=== PATIENT | male | born 1950 | race Caucasian/White ===

== ENCOUNTER 2016-09-15 09:15 | Inpatient (IN) | payer OTHER ==
[~2016-09-15] VITALS: Ht 180.3 cm; Wt 85.0 kg
[~2016-09-15 09:15] MED LIST: LEVO88TA4 PO; LISI-646 PO
[2016-09-15 09:42] LABS: Urine Bilirubin Negative (Negative); Urine Blood 1+ /uL (Negative); Urine Color Orange (Yellow); Urine Glucose Normal (Normal); Urine Ketone Negative (Negative); Urine Mucus FEW (None Seen); Urine Nitrite Negative (Negative); Urine RBC 12 /hpf (0 - 3); Urine Squamous Epithelial Cell FEW /hpf (<5); Urine Urobilinogen Normal (Negative); Urine pH 5.5 (5.0-8.0)
[2016-09-15 10:06] LABS: Hemoglobin 13.9 g/dL (13.5-17.5); Mean Corpuscular Hemoglobin 29.4 pg (28.0-32.0); Mean Platelet Volume 8.6 fL (7.4-10.4); Platelet Count (auto) 303 10^3/uL (140-450); SUSPECT VIEW TRANSMISSION
[2016-09-15 10:13] LABS: Metamyelocytes % 0; Myelocytes % 0; Promyelocytes % 0; Reactive Lymphocytes 0
[2016-09-15 10:16] LABS: Albumin 2.9 g/dL (3.4-5.0); BUN/Creatinine Ratio 7.6; Bilirubin, Total 0.6 mg/dL (0.2-1.0); Calcium 8.8 mg/dL (8.5-10.1); Potassium 3.8 mmol/L (3.5-5.1); Total Protein 7.7 g/dL (6.4-8.2)
[2016-09-15 10:18] LABS: Lactic Acid 2.1 mmol/L (0.4-2.0)
[2016-09-15] MEDS ORDERED: IOHEXOL 300 MG/ML 100ML BOTTLE IJ ONE (10:20)
[2016-09-15 10:23] LABS: REFLEX LACTIC ACID YES OR NO YES
[2016-09-15] MEDS ORDERED: GASTROGRAFIN 30 ML SOL ONE (11:00)
[2016-09-15 12:04] LABS: Platelet Estimate Adequate; RBC Morphology Normal
[2016-09-15 12:09] LABS: White Blood Cell 12.3 10^3/uL (4.4-10.8)
[2016-09-15] MEDS ORDERED: VANCOMYCIN PER PHARMACY 0 MG IV SCH (12:30)
[2016-09-15] MEDS ORDERED: cefTRIAXone 1GM/50ML D5W 50 ML IV ONE (12:30)
[2016-09-15] MEDS ORDERED: ONDANSETRON HCL 4 MG/2 ML VIAL IV PRN (12:30)
[2016-09-15] MEDS: D5W/LACTATED RINGERS 1,000 ML IV SCH ×2 (12:30→22:30)
[2016-09-15] MEDS ORDERED: ENALAPRILAT 1.25 MG/ML-1ML VIAL IV PRN (12:30)
[2016-09-15] MEDS ORDERED: ACETAMINOPHEN 325 MG RECT SUPP PR PRN (12:45)
[2016-09-15] MEDS: VANCOMYCIN 1,250 MG in D5W 5% 250 ML IV SCH (14:00)
[2016-09-15 16:58] VITALS: BP 129/75
[2016-09-15 17:05] VITALS: BP 129/75
[2016-09-15] MEDS: metroNIDAZOLE 500MG/100ML 100 ML IV SCH ×2 (17:32→22:07)
[2016-09-15] MEDS: MORPHINE SULF INJ 2 MG/ML SYRINGE 1ML IV PRN ×2 (17:32→22:08)
[2016-09-15 22:01] VITALS: BP 134/72
[2016-09-16] MEDS: VANCOMYCIN 1,250 MG in D5W 5% 250 ML IV SCH ×2 (02:04→14:26)
[2016-09-16] MEDS: MORPHINE SULF INJ 2 MG/ML SYRINGE 1ML IV PRN ×3 (02:15→21:47)
[2016-09-16 05:00] VITALS: BP 113/68
[2016-09-16 05:26] LABS: Basophils # (auto) 0 uL; Basophils % (auto) 0.4 % (0.0-2.0); Eosinophils # (auto) 0.1 uL; Eosinophils % (auto) 0.6 % (0.0-7.0); Hematocrit 36.7 % (41.0-53.0); Hemoglobin 11.9 g/dL (13.5-17.5); Lymphocytes # (auto) 1.6 uL; Mean Corpuscular Hemoglobin 28.9 pg (28.0-32.0); Mean Corpuscular Hgb Conc. 32.4 g/dL (32.0-36.0); Mean Corpuscular Volume 89.1 fL (80.0-100.0); Mean Platelet Volume 8.3 fL (7.4-10.4); Monocytes # (auto) 1.1 uL; Monocytes % (auto) 11.6 % (0.0-12.0); Neutrophils % (auto) 71.4 % (37.0-80.0); Platelet Count (auto) 370 10^3/uL (140-450); Red Cell Distribution Width 13.9 % (11.6-16.0); White Blood Cell 9.8 10^3/uL (4.4-10.8)
[2016-09-16 05:39] LABS: Partial Thromboplastin Time 32.4 sec (22.64-33.71)
[2016-09-16 05:45] LABS: Albumin 2.3 g/dL (3.4-5.0); BUN/Creatinine Ratio 8.2; Calcium 8.1 mg/dL (8.5-10.1); INR 1.17 (0.9-1.15); Potassium 3.5 mmol/L (3.5-5.1)
[2016-09-16] MEDS: metroNIDAZOLE 500MG/100ML 100 ML IV SCH ×3 (05:52→21:34)
[2016-09-16 05:55] LABS: Bilirubin, Total 0.4 mg/dL (0.2-1.0); Total Protein 6.6 g/dL (6.4-8.2)
[2016-09-16] MEDS: D5W/LACTATED RINGERS 1,000 ML IV SCH ×3 (08:30→21:41)
[2016-09-16] MEDS: cefTRIAXone 1GM/50ML D5W 50 ML IV SCH (08:41)
[2016-09-16 09:19] VITALS: BP 133/69
[2016-09-16 11:51] VITALS: BP 129/71
[2016-09-16] MEDS ORDERED: TPN PER PHARMACY 0 ML IV SCH (12:15)
[2016-09-16 12:53] LABS: Magnesium 2.4 mg/dL (1.6-2.6); Phosphorus 3.4 mg/dL (2.6-4.90)
[2016-09-16 17:03] VITALS: BP 139/81
[2016-09-16] MEDS ORDERED: CLINIMIX PER PHARMACY IV NR ×7 (20:00)
[2016-09-16 22:00] VITALS: BP 139/70
[2016-09-16] MEDS: InsuLIN REG 1unit/0.01ml Soln (100units/ml) SC SCH (23:58)
[2016-09-16] MEDS: ACCU-CHEK COMFORT CURVE STRIP VI SCH (23:58)
[2016-09-17] MEDS ORDERED: DEXTROSE (50%) 50ML SYRG IV SCH
[2016-09-17] MEDS: VANCOMYCIN 1,250 MG in D5W 5% 250 ML IV SCH ×2 (02:08→14:47)
[2016-09-17] MEDS: metroNIDAZOLE 500MG/100ML 100 ML IV SCH ×2 (04:32→12:00)
[2016-09-17 05:30] VITALS: BP 139/89
[2016-09-17 05:34] LABS: Calcium 8.1 mg/dL (8.5-10.1); Potassium 3.6 mmol/L (3.5-5.1)
[2016-09-17 05:37] LABS: Albumin 2.2 g/dL (3.4-5.0); BUN/Creatinine Ratio 9.8
[2016-09-17 05:44] LABS: Magnesium 2.3 mg/dL (1.6-2.6); Phosphorus 3.8 mg/dL (2.6-4.90)
[2016-09-17 05:49] LABS: Bilirubin, Total 0.2 mg/dL (0.2-1.0)
[2016-09-17] MEDS: ACCU-CHEK COMFORT CURVE STRIP VI SCH ×4 (06:00→23:59)
[2016-09-17] MEDS: InsuLIN REG 1unit/0.01ml Soln (100units/ml) SC SCH ×4 (06:00→23:59)
[2016-09-17 09:08] VITALS: BP 143/77
[2016-09-17] MEDS: cefTRIAXone 1GM/50ML D5W 50 ML IV SCH (09:32)
[2016-09-17] MEDS: D5W/LACTATED RINGERS 1,000 ML IV SCH ×2 (09:32→20:11)
[2016-09-17] MEDS ORDERED: D5W/LACTATED RINGERS 1,000 ML IV SCH (10:15)
[2016-09-17 13:00] VITALS: BP 142/77
[2016-09-17] MEDS ORDERED: LIDOCAINE 1% HCL (LOCAL ANESTH.) INJ 20ML MDV ID ONE (13:45)
[2016-09-17 17:00] VITALS: BP 132/73
[2016-09-17] MEDS: MEROPENEM 1GM IVPB 100 ML IV SCH (19:15)
[2016-09-17] MEDS ORDERED: PPN PER PHARMACY IV NR ×12 (20:00)
[2016-09-17 22:00] VITALS: BP 139/77
[2016-09-17] MEDS: SODIUM CHLOR 0.9% PF (SALINE LOCK) 10ML VIAL IV SCH (22:17)
[2016-09-17] MEDS: MORPHINE SULF INJ 2 MG/ML SYRINGE 1ML IV PRN (23:36)
[2016-09-18] MEDS: MEROPENEM 1GM IVPB 100 ML IV SCH ×3 (01:36→17:21)
[2016-09-18] MEDS: VANCOMYCIN 1,250 MG in D5W 5% 250 ML IV SCH ×2 (01:36→14:07)
[2016-09-18] MEDS: MORPHINE SULF INJ 2 MG/ML SYRINGE 1ML IV PRN ×2 (04:05→20:44)
[2016-09-18 05:00] VITALS: BP 130/77
[2016-09-18] MEDS: InsuLIN REG 1unit/0.01ml Soln (100units/ml) SC SCH ×4 (06:00→23:53)
[2016-09-18] MEDS: ACCU-CHEK COMFORT CURVE STRIP VI SCH ×4 (06:32→23:51)
[2016-09-18 07:26] LABS: Albumin 2.1 g/dL (3.4-5.0); BUN/Creatinine Ratio 9.3; Bilirubin, Total 0.3 mg/dL (0.2-1.0); Calcium 7.6 mg/dL (8.5-10.1); Magnesium 2.1 mg/dL (1.6-2.6); Phosphorus 2.4 mg/dL (2.6-4.90); Potassium 3.9 mmol/L (3.5-5.1); Total Protein 5.6 g/dL (6.4-8.2)
[2016-09-18] MEDS ORDERED: GASTROGRAFIN 30 ML SOL ONE (08:39)
[2016-09-18 09:19] VITALS: BP 138/72
[2016-09-18] MEDS: SODIUM CHLOR 0.9% PF (SALINE LOCK) 10ML VIAL IV SCH ×2 (11:51→21:44)
[2016-09-18] MEDS ORDERED: MIDAZOLAM HCL 1MG/1ML-2 ML VIAL ONE (13:09)
[2016-09-18] MEDS ORDERED: fentaNYL CITRATE 100 MCG/2 ML VL ONE (13:09)
[2016-09-18] MEDS ORDERED: PANTOPRAZOLE SODIUM 40 MG/10 ML VIAL IV ONE (13:30)
[2016-09-18 14:52] VITALS: BP 138/69
[2016-09-18 17:19] VITALS: BP 137/73
[2016-09-18] MEDS: D5W/LACTATED RINGERS 1,000 ML IV SCH (17:21)
[2016-09-18] MEDS ORDERED: ALUM & MAG HYDROX-SIMETH LIQ(MAALOX) 30 ML PO PRN (17:45)
[2016-09-18] MEDS ORDERED: TPN PER PHARMACY IV NR ×11 (20:00)
[2016-09-18 21:44] VITALS: BP 134/75
[2016-09-19] MEDS: VANCOMYCIN 1,250 MG in D5W 5% 250 ML IV SCH ×2 (01:40→14:02)
[2016-09-19] MEDS: MEROPENEM 1GM IVPB 100 ML IV SCH ×2 (01:40→08:35)
[2016-09-19 05:06] VITALS: BP 141/71
[2016-09-19] MEDS: InsuLIN REG 1unit/0.01ml Soln (100units/ml) SC SCH ×3 (06:00→18:00)
[2016-09-19] MEDS: ACCU-CHEK COMFORT CURVE STRIP VI SCH ×3 (06:28→18:05)
[2016-09-19 06:55] LABS: Basophils # (auto) 0 uL; Basophils % (auto) 0.3 % (0.0-2.0); Eosinophils # (auto) 0.2 uL; Eosinophils % (auto) 1.2 % (0.0-7.0); Hematocrit 32.5 % (41.0-53.0); Hemoglobin 10.7 g/dL (13.5-17.5); Lymphocytes # (auto) 1.2 uL; Lymphocytes % (auto) 8.8 % (10.0-50.0); Mean Corpuscular Hemoglobin 29.1 pg (28.0-32.0); Mean Corpuscular Volume 88.1 fL (80.0-100.0); Mean Platelet Volume 7.9 fL (7.4-10.4); Monocytes % (auto) 7.5 % (0.0-12.0); Neutrophils # (auto) 10.9 uL; Neutrophils % (auto) 82.2 % (37.0-80.0); Platelet Count (auto) 312 10^3/uL (140-450); Red Cell Distribution Width 13.7 % (11.6-16.0); White Blood Cell 13.3 10^3/uL (4.4-10.8)
[2016-09-19 07:14] LABS: Albumin 2.1 g/dL (3.4-5.0); BUN/Creatinine Ratio 9.2; Bilirubin, Total 0.3 mg/dL (0.2-1.0); Calcium 6.9 mg/dL (8.5-10.1); Phosphorus 2.8 mg/dL (2.6-4.90); Potassium 3.7 mmol/L (3.5-5.1); Total Protein 5.5 g/dL (6.4-8.2)
[2016-09-19 09:00] VITALS: BP 134/72
[2016-09-19] MEDS: SODIUM CHLOR 0.9% PF (SALINE LOCK) 10ML VIAL IV SCH ×2 (09:46→22:01)
[2016-09-19] MEDS: PANTOPRAZOLE SODIUM 40 MG/10 ML VIAL IV SCH (09:46)
[2016-09-19] MEDS ORDERED: IOTHALAMATE MEGLUMINE INJ 250ML BOT UR ONE (12:07)
[2016-09-19] MEDS: D5W/LACTATED RINGERS 1,000 ML IV SCH (14:02)
[2016-09-19 17:00] VITALS: BP 133/79
[2016-09-19] MEDS: LEVOFLOXACIN 500MG 100 ML IV SCH (17:53)
[2016-09-19] MEDS ORDERED: TPN PER PHARMACY IV NR ×11 (20:00)
[2016-09-19] MEDS ORDERED: D5W/LACTATED RINGERS 1,000 ML IV SCH (20:00)
[2016-09-19 21:43] VITALS: BP 125/74
[2016-09-19] MEDS: TEMAZEPAM 15 MG CAP PO PRN (22:04)
[2016-09-20] MEDS: ACCU-CHEK COMFORT CURVE STRIP VI SCH ×4 (00:05→18:00)
[2016-09-20] MEDS: InsuLIN REG 1unit/0.01ml Soln (100units/ml) SC SCH ×4 (00:07→18:00)
[2016-09-20] MEDS: VANCOMYCIN 1,250 MG in D5W 5% 250 ML IV SCH ×2 (01:53→19:29)
[2016-09-20 04:47] VITALS: BP 136/78
[2016-09-20 08:33] LABS: Albumin 2.4 g/dL (3.4-5.0); BUN/Creatinine Ratio 10.7; Bilirubin, Total 0.3 mg/dL (0.2-1.0); Calcium 8.4 mg/dL (8.5-10.1); Magnesium 2.6 mg/dL (1.6-2.6); Phosphorus 3.6 mg/dL (2.6-4.90); Potassium 4.5 mmol/L (3.5-5.1); Total Protein 6.7 g/dL (6.4-8.2)
[2016-09-20 09:00] VITALS: BP 122/74
[2016-09-20] MEDS: SODIUM CHLOR 0.9% PF (SALINE LOCK) 10ML VIAL IV SCH ×2 (10:00→21:27)
[2016-09-20] MEDS: PANTOPRAZOLE SODIUM 40 MG/10 ML VIAL IV SCH (10:36)
[2016-09-20] MEDS: LEVOFLOXACIN 500MG 100 ML IV SCH (10:37)
[2016-09-20 11:11] LABS: Basophils # (auto) 0.1 uL; Basophils % (auto) 0.7 % (0.0-2.0); Eosinophils # (auto) 0.3 uL; Eosinophils % (auto) 2.5 % (0.0-7.0); Hemoglobin 11.9 g/dL (13.5-17.5); Lymphocytes # (auto) 1.7 uL; Lymphocytes % (auto) 12.9 % (10.0-50.0); Mean Corpuscular Hemoglobin 29.3 pg (28.0-32.0); Mean Corpuscular Hgb Conc. 33.2 g/dL (32.0-36.0); Mean Corpuscular Volume 88.2 fL (80.0-100.0); Mean Platelet Volume 7.6 fL (7.4-10.4); Monocytes % (auto) 7.4 % (0.0-12.0); Neutrophils # (auto) 9.8 uL; Neutrophils % (auto) 76.5 % (37.0-80.0); Platelet Count (auto) 373 10^3/uL (140-450); Red Cell Distribution Width 13.9 % (11.6-16.0); White Blood Cell 12.9 10^3/uL (4.4-10.8)
[2016-09-20 13:00] VITALS: BP 116/71
[2016-09-20 17:00] VITALS: BP 126/76
[2016-09-20] MEDS ORDERED: TPN PER PHARMACY IV NR ×10 (20:00)
[2016-09-20 21:04] VITALS: BP 127/78
[2016-09-20] MEDS: TEMAZEPAM 15 MG CAP PO PRN (21:23)
[2016-09-20] MEDS: metroNIDAZOLE 500MG/100ML 100 ML IV SCH (21:26)
[2016-09-21] MEDS: ACCU-CHEK COMFORT CURVE STRIP VI SCH ×4 (00:19→22:14)
[2016-09-21] MEDS: VANCOMYCIN 1,250 MG in D5W 5% 250 ML IV SCH ×2 (02:07→14:00)
[2016-09-21 05:24] VITALS: BP 118/70
[2016-09-21] MEDS: metroNIDAZOLE 500MG/100ML 100 ML IV SCH ×3 (05:26→22:14)
[2016-09-21] MEDS: InsuLIN REG 1unit/0.01ml Soln (100units/ml) SC SCH ×5 (05:38→22:00)
[2016-09-21 07:34] LABS: Basophils # (auto) 0 uL; Basophils % (auto) 0.4 % (0.0-2.0); Eosinophils # (auto) 0.3 uL; Eosinophils % (auto) 2.8 % (0.0-7.0); Hematocrit 36.9 % (41.0-53.0); Hemoglobin 11.9 g/dL (13.5-17.5); Lymphocytes # (auto) 1.6 uL; Lymphocytes % (auto) 14.5 % (10.0-50.0); Mean Corpuscular Hemoglobin 28.8 pg (28.0-32.0); Mean Corpuscular Hgb Conc. 32.1 g/dL (32.0-36.0); Mean Corpuscular Volume 89.6 fL (80.0-100.0); Monocytes # (auto) 0.8 uL; Monocytes % (auto) 7.3 % (0.0-12.0); Neutrophils # (auto) 8.5 uL; Platelet Count (auto) 369 10^3/uL (140-450); White Blood Cell 11.3 10^3/uL (4.4-10.8)
[2016-09-21 07:49] LABS: Albumin 2.4 g/dL (3.4-5.0); BUN/Creatinine Ratio 13.9; Bilirubin, Total 0.3 mg/dL (0.2-1.0); Calcium 8.7 mg/dL (8.5-10.1); Magnesium 2.5 mg/dL (1.6-2.6); Phosphorus 3.6 mg/dL (2.6-4.90); Potassium 4.4 mmol/L (3.5-5.1); Total Protein 6.5 g/dL (6.4-8.2)
[2016-09-21 09:00] VITALS: BP 121/70
[2016-09-21] MEDS: SODIUM CHLOR 0.9% PF (SALINE LOCK) 10ML VIAL IV SCH ×2 (10:00→22:14)
[2016-09-21] MEDS: PANTOPRAZOLE SODIUM 40 MG/10 ML VIAL IV SCH (10:40)
[2016-09-21] MEDS: LEVOFLOXACIN 500MG 100 ML IV SCH (10:40)
[2016-09-21 13:00] VITALS: BP 145/84
[2016-09-21 17:00] VITALS: BP 135/80
[2016-09-21] MEDS ORDERED: TPN PER PHARMACY IV NR ×11 (20:00)
[2016-09-21 21:34] LABS: Urine Bilirubin Negative (Negative); Urine Blood Negative /uL (Negative); Urine Color Yellow (Yellow); Urine Glucose Normal (Normal); Urine Ketone Negative (Negative); Urine Mucus FEW (None Seen); Urine Nitrite Negative (Negative); Urine RBC 1 /hpf (0 - 3); Urine Urobilinogen Normal (Negative)
[2016-09-21 21:42] VITALS: BP 136/76
[2016-09-21] MEDS ORDERED: DEXTROSE (50%) 50ML SYRG IV SCH (22:00)
[2016-09-21] MEDS: TEMAZEPAM 15 MG CAP PO PRN (22:17)
[2016-09-22 01:44] LABS: Albumin 2.4 g/dL (3.4-5.0); BUN/Creatinine Ratio 14.1; Calcium 8.2 mg/dL (8.5-10.1); Potassium 4.1 mmol/L (3.5-5.1)
[2016-09-22 01:47] LABS: Bilirubin, Total 0.4 mg/dL (0.2-1.0); Total Protein 6.4 g/dL (6.4-8.2)
[2016-09-22] MEDS: VANCOMYCIN 1,250 MG in D5W 5% 250 ML IV SCH ×2 (02:02→14:54)
[2016-09-22 05:16] VITALS: BP 118/69
[2016-09-22] MEDS: metroNIDAZOLE 500MG/100ML 100 ML IV SCH ×3 (05:33→21:58)
[2016-09-22 06:32] LABS: Albumin 2.4 g/dL (3.4-5.0); BUN/Creatinine Ratio 14.6; Bilirubin, Total 0.4 mg/dL (0.2-1.0); Calcium 8.5 mg/dL (8.5-10.1); Magnesium 2.2 mg/dL (1.6-2.6); Phosphorus 2.9 mg/dL (2.6-4.90); Potassium 3.9 mmol/L (3.5-5.1); Total Protein 6.3 g/dL (6.4-8.2)
[2016-09-22 08:32] VITALS: BP 130/82
[2016-09-22] MEDS: PANTOPRAZOLE SODIUM 40 MG/10 ML VIAL IV SCH (09:44)
[2016-09-22] MEDS: LEVOFLOXACIN 500MG 100 ML IV SCH (09:44)
[2016-09-22] MEDS: SODIUM CHLOR 0.9% PF (SALINE LOCK) 10ML VIAL IV SCH ×2 (09:52→21:58)
[2016-09-22] MEDS: InsuLIN REG 1unit/0.01ml Soln (100units/ml) SC SCH ×2 (10:00→21:59)
[2016-09-22] MEDS: ACCU-CHEK COMFORT CURVE STRIP VI SCH ×2 (10:00→21:59)
[2016-09-22] MEDS ORDERED: CATHFLO ACTIVASE (ALTEPLASE) 2 MG VIAL IV ONE (11:15)
[2016-09-22 13:00] VITALS: BP 123/74
[2016-09-22 16:50] VITALS: BP 132/77
[2016-09-22] MEDS ORDERED: TPN PER PHARMACY IV NR ×11 (20:00)
[2016-09-22] MEDS: TEMAZEPAM 15 MG CAP PO PRN (21:58)
[2016-09-22 22:00] VITALS: BP 124/77
[2016-09-23] MEDS: VANCOMYCIN 1,250 MG in D5W 5% 250 ML IV SCH ×2 (01:55→14:52)
[2016-09-23 05:00] VITALS: BP 116/70
[2016-09-23] MEDS: metroNIDAZOLE 500MG/100ML 100 ML IV SCH ×3 (05:34→21:49)
[2016-09-23 06:42] LABS: Albumin 2.5 g/dL (3.4-5.0); BUN/Creatinine Ratio 14.9; Bilirubin, Total 0.3 mg/dL (0.2-1.0); Calcium 8.6 mg/dL (8.5-10.1); Magnesium 2.2 mg/dL (1.6-2.6); Phosphorus 3.3 mg/dL (2.6-4.90); Potassium 4.1 mmol/L (3.5-5.1); Total Protein 6.3 g/dL (6.4-8.2)
[2016-09-23 08:12] VITALS: BP 119/67
[2016-09-23] MEDS: PANTOPRAZOLE SODIUM 40 MG/10 ML VIAL IV SCH (09:59)
[2016-09-23] MEDS: LEVOFLOXACIN 500MG 100 ML IV SCH (09:59)
[2016-09-23] MEDS: SODIUM CHLOR 0.9% PF (SALINE LOCK) 10ML VIAL IV SCH ×2 (10:00→22:12)
[2016-09-23] MEDS: InsuLIN REG 1unit/0.01ml Soln (100units/ml) SC SCH ×2 (10:00→22:10)
[2016-09-23] MEDS: ACCU-CHEK COMFORT CURVE STRIP VI SCH ×2 (10:16→21:50)
[2016-09-23 13:08] VITALS: BP 125/72
[2016-09-23 16:23] VITALS: BP 126/73
[2016-09-23] MEDS ORDERED: TPN PER PHARMACY IV NR ×11 (20:00)
[2016-09-23] MEDS: TEMAZEPAM 15 MG CAP PO PRN (21:49)
[2016-09-23 22:00] VITALS: BP 121/68
[2016-09-24] MEDS: VANCOMYCIN 1,250 MG in D5W 5% 250 ML IV SCH ×2 (02:18→13:58)
[2016-09-24 05:48] VITALS: BP 120/67
[2016-09-24] MEDS: metroNIDAZOLE 500MG/100ML 100 ML IV SCH ×3 (06:44→21:28)
[2016-09-24 07:11] LABS: Basophils # (auto) 0 uL; Basophils % (auto) 0.4 % (0.0-2.0); Eosinophils # (auto) 0.3 uL; Eosinophils % (auto) 2.9 % (0.0-7.0); Hematocrit 39.3 % (41.0-53.0); Hemoglobin 12.7 g/dL (13.5-17.5); Lymphocytes # (auto) 2.3 uL; Lymphocytes % (auto) 20.8 % (10.0-50.0); Mean Corpuscular Hemoglobin 28.7 pg (28.0-32.0); Mean Corpuscular Hgb Conc. 32.3 g/dL (32.0-36.0); Mean Platelet Volume 8.6 fL (7.4-10.4); Monocytes # (auto) 0.7 uL; Monocytes % (auto) 6.1 % (0.0-12.0); Neutrophils # (auto) 7.6 uL; Neutrophils % (auto) 69.8 % (37.0-80.0); Platelet Count (auto) 406 10^3/uL (140-450); Red Cell Distribution Width 14.2 % (11.6-16.0); White Blood Cell 10.9 10^3/uL (4.4-10.8)
[2016-09-24 07:44] LABS: BUN/Creatinine Ratio 15.5; Bilirubin, Total 0.4 mg/dL (0.2-1.0); Calcium 9.1 mg/dL (8.5-10.1); Magnesium 2.3 mg/dL (1.6-2.6); Phosphorus 3.7 mg/dL (2.6-4.90); Total Protein 7.2 g/dL (6.4-8.2)
[2016-09-24 07:45] LABS: Potassium 4.4 mmol/L (3.5-5.1)
[2016-09-24 09:00] VITALS: BP 123/78
[2016-09-24] MEDS: InsuLIN REG 1unit/0.01ml Soln (100units/ml) SC SCH (10:00)
[2016-09-24] MEDS: SODIUM CHLOR 0.9% PF (SALINE LOCK) 10ML VIAL IV SCH ×2 (10:09→21:38)
[2016-09-24] MEDS: LEVOFLOXACIN 500MG 100 ML IV SCH (10:09)
[2016-09-24] MEDS: PANTOPRAZOLE SODIUM 40 MG/10 ML VIAL IV SCH (10:09)
[2016-09-24] MEDS ORDERED: GASTROGRAFIN 30 ML SOL ONE (12:18)
[2016-09-24] MEDS: ACCU-CHEK COMFORT CURVE STRIP VI SCH ×2 (12:29→22:00)
[2016-09-24 13:00] VITALS: BP 121/70
[2016-09-24] MEDS ORDERED: IOHEXOL 300 MG/ML 100ML BOTTLE IJ ONE (14:35)
[2016-09-24 17:00] VITALS: BP 106/68
[2016-09-24] MEDS ORDERED: TPN PER PHARMACY IV NR ×11 (20:00)
[2016-09-24] MEDS: TEMAZEPAM 15 MG CAP PO PRN (21:27)
[2016-09-24 22:00] VITALS: BP 121/65
[2016-09-25] MEDS: InsuLIN REG 1unit/0.01ml Soln (100units/ml) SC SCH ×3 (00:03→22:11)
[2016-09-25] MEDS: VANCOMYCIN 1,250 MG in D5W 5% 250 ML IV SCH ×2 (02:00→14:27)
[2016-09-25 05:25] VITALS: BP 121/66
[2016-09-25] MEDS: metroNIDAZOLE 500MG/100ML 100 ML IV SCH ×3 (06:00→20:57)
[2016-09-25 08:40] LABS: Basophils # (auto) 0.1 uL; Basophils % (auto) 0.3 % (0.0-2.0); Eosinophils # (auto) 0.2 uL; Eosinophils % (auto) 1.1 % (0.0-7.0); Hematocrit 40.7 % (41.0-53.0); Lymphocytes # (auto) 1.8 uL; Lymphocytes % (auto) 9.9 % (10.0-50.0); Mean Corpuscular Hemoglobin 28.3 pg (28.0-32.0); Mean Corpuscular Hgb Conc. 31.9 g/dL (32.0-36.0); Mean Corpuscular Volume 88.7 fL (80.0-100.0); Mean Platelet Volume 8.3 fL (7.4-10.4); Monocytes # (auto) 0.7 uL; Monocytes % (auto) 3.7 % (0.0-12.0); Neutrophils # (auto) 15.5 uL; Platelet Count (auto) 413 10^3/uL (140-450); Red Cell Distribution Width 15.1 % (11.6-16.0); White Blood Cell 18.3 10^3/uL (4.4-10.8)
[2016-09-25 08:59] LABS: Albumin 2.8 g/dL (3.4-5.0); BUN/Creatinine Ratio 14.2; Bilirubin, Total 0.5 mg/dL (0.2-1.0); Calcium 8.4 mg/dL (8.5-10.1); Magnesium 2.1 mg/dL (1.6-2.6); Potassium 4.2 mmol/L (3.5-5.1); Total Protein 7.2 g/dL (6.4-8.2)
[2016-09-25 09:00] VITALS: BP 114/65
[2016-09-25] MEDS: LEVOFLOXACIN 500MG 100 ML IV SCH (09:38)
[2016-09-25] MEDS: PANTOPRAZOLE SODIUM 40 MG/10 ML VIAL IV SCH (09:38)
[2016-09-25] MEDS: SODIUM CHLOR 0.9% PF (SALINE LOCK) 10ML VIAL IV SCH ×2 (09:39→21:09)
[2016-09-25] MEDS: ACCU-CHEK COMFORT CURVE STRIP VI SCH ×2 (09:39→21:09)
[2016-09-25] MEDS ORDERED: MORPHINE SULF INJ 2 MG/ML SYRINGE 1ML IV PRN (12:15)
[2016-09-25] MEDS ORDERED: FLUCONAZOLE 200MG/100ML 100 ML IV ONE (12:15)
[2016-09-25] MEDS ORDERED: VANCOMYCIN PER PHARMACY 0 MG IV SCH (12:15)
[2016-09-25 13:00] VITALS: BP 122/67
[2016-09-25] MEDS ORDERED: ACETAMINOPHEN 500 MG TAB PO PRN (13:30)
[2016-09-25 17:00] VITALS: BP 123/72
[2016-09-25] MEDS ORDERED: TPN PER PHARMACY IV NR ×12 (20:00)
[2016-09-25] MEDS: TEMAZEPAM 15 MG CAP PO PRN (21:49)
[2016-09-25 22:00] VITALS: BP 122/71
[2016-09-26] MEDS: VANCOMYCIN 1,250 MG in D5W 5% 250 ML IV SCH ×2 (01:27→14:20)
[2016-09-26] MEDS: metroNIDAZOLE 500MG/100ML 100 ML IV SCH ×3 (05:03→22:02)
[2016-09-26 05:31] VITALS: BP 113/71
[2016-09-26 06:29] LABS: Albumin 2.5 g/dL (3.4-5.0); BUN/Creatinine Ratio 14.1; Bilirubin, Total 0.4 mg/dL (0.2-1.0); Calcium 8.4 mg/dL (8.5-10.1); Magnesium 2.3 mg/dL (1.6-2.6); Phosphorus 3.1 mg/dL (2.6-4.90); Potassium 4.1 mmol/L (3.5-5.1); Total Protein 6.1 g/dL (6.4-8.2)
[2016-09-26 06:40] LABS: Hemoglobin 11.5 g/dL (13.5-17.5); Mean Corpuscular Hemoglobin 29.6 pg (28.0-32.0); Mean Corpuscular Hgb Conc. 32.9 g/dL (32.0-36.0); Mean Corpuscular Volume 90.1 fL (80.0-100.0); Mean Platelet Volume 8.7 fL (7.4-10.4); Platelet Count (auto) 288 10^3/uL (140-450); Red Cell Distribution Width 13.5 % (11.6-16.0); SUSPECT VIEW TRANSMISSION; White Blood Cell 10.3 10^3/uL (4.4-10.8)
[2016-09-26 07:21] LABS: Metamyelocytes % 0; Myelocytes % 0; Promyelocytes % 0; Reactive Lymphocytes 0
[2016-09-26 08:56] LABS: Platelet Estimate Adequate; RBC Morphology Normal
[2016-09-26 09:00] VITALS: BP 117/67
[2016-09-26] MEDS: ACCU-CHEK COMFORT CURVE STRIP VI SCH ×2 (10:00→22:18)
[2016-09-26] MEDS: PANTOPRAZOLE SODIUM 40 MG/10 ML VIAL IV SCH (11:11)
[2016-09-26] MEDS: SODIUM CHLOR 0.9% PF (SALINE LOCK) 10ML VIAL IV SCH ×2 (11:12→22:03)
[2016-09-26] MEDS: FLUCONAZOLE 200MG/100ML 100 ML IV SCH (11:12)
[2016-09-26] MEDS: InsuLIN REG 1unit/0.01ml Soln (100units/ml) SC SCH ×2 (11:42→22:17)
[2016-09-26 13:00] VITALS: BP 120/73
[2016-09-26 17:00] VITALS: BP 138/78
[2016-09-26] MEDS: LEVOFLOXACIN 500MG 100 ML IV SCH (17:13)
[2016-09-26] MEDS ORDERED: TPN PER PHARMACY IV NR ×12 (20:00)
[2016-09-26 22:00] VITALS: BP 128/72
[2016-09-26] MEDS: TEMAZEPAM 15 MG CAP PO PRN (22:13)
[2016-09-27] MEDS ORDERED: VANCOMYCIN 1GM/250ML D5W 250 ML IV ONE (01:43)
[2016-09-27] MEDS: VANCOMYCIN 1,250 MG in D5W 5% 250 ML IV SCH ×2 (02:01→14:39)
[2016-09-27] MEDS: metroNIDAZOLE 500MG/100ML 100 ML IV SCH ×3 (04:33→20:37)
[2016-09-27 05:22] VITALS: BP 107/62
[2016-09-27 06:16] LABS: Albumin 2.4 g/dL (3.4-5.0); BUN/Creatinine Ratio 14.8; Bilirubin, Total 0.3 mg/dL (0.2-1.0); Calcium 8.4 mg/dL (8.5-10.1); Magnesium 2.3 mg/dL (1.6-2.6); Potassium 3.9 mmol/L (3.5-5.1); Total Protein 6.1 g/dL (6.4-8.2)
[2016-09-27 08:34] VITALS: BP 120/74
[2016-09-27 08:54] LABS: Basophils # (auto) 0 uL; Basophils % (auto) 0.4 % (0.0-2.0); Eosinophils # (auto) 0.2 uL; Eosinophils % (auto) 2.7 % (0.0-7.0); Hematocrit 33.1 % (41.0-53.0); Hemoglobin 10.7 g/dL (13.5-17.5); Lymphocytes # (auto) 1.3 uL; Mean Corpuscular Hgb Conc. 32.4 g/dL (32.0-36.0); Mean Corpuscular Volume 89.4 fL (80.0-100.0); Mean Platelet Volume 9.1 fL (7.4-10.4); Monocytes # (auto) 0.7 uL; Monocytes % (auto) 9.1 % (0.0-12.0); Neutrophils # (auto) 5.4 uL; Neutrophils % (auto) 70.8 % (37.0-80.0); Platelet Count (auto) 304 10^3/uL (140-450); Red Cell Distribution Width 14.4 % (11.6-16.0); White Blood Cell 7.6 10^3/uL (4.4-10.8)
[2016-09-27] MEDS: FLUCONAZOLE 200MG/100ML 100 ML IV SCH (08:55)
[2016-09-27] MEDS: ACCU-CHEK COMFORT CURVE STRIP VI SCH ×2 (09:02→22:09)
[2016-09-27] MEDS: PANTOPRAZOLE SODIUM 40 MG/10 ML VIAL IV SCH (10:26)
[2016-09-27] MEDS: LEVOFLOXACIN 500MG 100 ML IV SCH (10:26)
[2016-09-27] MEDS: InsuLIN REG 1unit/0.01ml Soln (100units/ml) SC SCH ×2 (10:27→22:00)
[2016-09-27] MEDS: SODIUM CHLOR 0.9% PF (SALINE LOCK) 10ML VIAL IV SCH ×2 (10:28→22:09)
[2016-09-27 11:04] VITALS: BP 124/75
[2016-09-27 16:38] VITALS: BP 124/64
[2016-09-27] MEDS ORDERED: TPN PER PHARMACY IV NR ×11 (20:00)
[2016-09-27 22:00] VITALS: BP 113/76
[2016-09-27] MEDS: TEMAZEPAM 15 MG CAP PO PRN (22:14)
[2016-09-28] MEDS: VANCOMYCIN 1,250 MG in D5W 5% 250 ML IV SCH (01:43)
[2016-09-28 05:00] VITALS: BP_SYST 126; BP_SYST 151; BP_DIAS 100; BP_DIAS 74
[2016-09-28] MEDS: metroNIDAZOLE 500MG/100ML 100 ML IV SCH ×3 (05:02→21:00)
[2016-09-28 05:46] LABS: Basophils # (auto) 0 uL; Basophils % (auto) 0.4 % (0.0-2.0); Eosinophils # (auto) 0.2 uL; Eosinophils % (auto) 3.7 % (0.0-7.0); Hematocrit 33.8 % (41.0-53.0); Lymphocytes # (auto) 1.4 uL; Lymphocytes % (auto) 20.8 % (10.0-50.0); Mean Corpuscular Hemoglobin 28.8 pg (28.0-32.0); Mean Corpuscular Hgb Conc. 32.5 g/dL (32.0-36.0); Mean Corpuscular Volume 88.8 fL (80.0-100.0); Mean Platelet Volume 8.8 fL (7.4-10.4); Monocytes # (auto) 0.5 uL; Monocytes % (auto) 7.6 % (0.0-12.0); Neutrophils # (auto) 4.4 uL; Neutrophils % (auto) 67.5 % (37.0-80.0); Platelet Count (auto) 294 10^3/uL (140-450); Red Cell Distribution Width 14.8 % (11.6-16.0); White Blood Cell 6.6 10^3/uL (4.4-10.8)
[2016-09-28 06:19] LABS: Albumin 2.5 g/dL (3.4-5.0); BUN/Creatinine Ratio 13.8; Bilirubin, Total 0.3 mg/dL (0.2-1.0); Calcium 8.6 mg/dL (8.5-10.1); Magnesium 2.3 mg/dL (1.6-2.6); Phosphorus 2.9 mg/dL (2.6-4.90); Potassium 4.1 mmol/L (3.5-5.1); Total Protein 6.2 g/dL (6.4-8.2)
[2016-09-28 08:22] VITALS: BP 129/79
[2016-09-28] MEDS: SODIUM CHLOR 0.9% PF (SALINE LOCK) 10ML VIAL IV SCH ×2 (09:22→22:32)
[2016-09-28] MEDS: PANTOPRAZOLE SODIUM 40 MG/10 ML VIAL IV SCH (09:22)
[2016-09-28] MEDS: FLUCONAZOLE 200MG/100ML 100 ML IV SCH (09:22)
[2016-09-28] MEDS: LEVOFLOXACIN 500MG 100 ML IV SCH (09:23)
[2016-09-28] MEDS: ACCU-CHEK COMFORT CURVE STRIP VI SCH ×2 (09:23→22:33)
[2016-09-28] MEDS: InsuLIN REG 1unit/0.01ml Soln (100units/ml) SC SCH ×2 (09:45→22:30)
[2016-09-28 13:50] VITALS: BP_SYST 129; BP_SYST 140; BP_DIAS 76; BP_DIAS 79
[2016-09-28] MEDS ORDERED: ONDANSETRON HCL 4 MG/2 ML VIAL IV PRN (14:15)
[2016-09-28] MEDS ORDERED: ACETAMINOPHEN 325 MG RECT SUPP PR PRN (14:15)
[2016-09-28] MEDS ORDERED: ENALAPRILAT 1.25 MG/ML-1ML VIAL IV PRN (14:15)
[2016-09-28] MEDS ORDERED: TEMAZEPAM 15 MG CAP PO PRN (14:15)
[2016-09-28 17:11] VITALS: BP 124/76
[2016-09-28 22:00] VITALS: BP 129/77
[2016-09-28] MEDS ORDERED: VANCOMYCIN 1GM/250ML D5W 250 ML IV SCH (22:00)
[2016-09-29] MEDS: metroNIDAZOLE 500MG/100ML 100 ML IV SCH (04:54)
[2016-09-29 05:00] VITALS: BP 113/73
[2016-09-29 05:35] LABS: Basophils # (auto) 0 uL; Basophils % (auto) 0.3 % (0.0-2.0); Eosinophils # (auto) 0.4 uL; Eosinophils % (auto) 4.9 % (0.0-7.0); Hematocrit 34.8 % (41.0-53.0); Hemoglobin 11.2 g/dL (13.5-17.5); Lymphocytes # (auto) 1.8 uL; Lymphocytes % (auto) 22.3 % (10.0-50.0); Mean Corpuscular Hemoglobin 28.8 pg (28.0-32.0); Mean Corpuscular Hgb Conc. 32.2 g/dL (32.0-36.0); Mean Corpuscular Volume 89.4 fL (80.0-100.0); Monocytes # (auto) 0.6 uL; Monocytes % (auto) 7.8 % (0.0-12.0); Neutrophils # (auto) 5.2 uL; Neutrophils % (auto) 64.7 % (37.0-80.0); Platelet Count (auto) 290 10^3/uL (140-450); Red Cell Distribution Width 14.9 % (11.6-16.0); White Blood Cell 8.1 10^3/uL (4.4-10.8)
[2016-09-29 05:54] LABS: Calcium 8.8 mg/dL (8.5-10.1); Potassium 4.1 mmol/L (3.5-5.1)
[2016-09-29 05:56] LABS: BUN/Creatinine Ratio 10.6
[2016-09-29 07:55] VITALS: BP 127/72
[2016-09-29] MEDS ORDERED: LEVOFLOXACIN 500 MG TAB PO SCH (10:00)
[2016-09-29] MEDS ORDERED: LEVOTHYROXINE SODIUM 88 MCG TAB PO ONE (10:00)
[2016-09-29] MEDS ORDERED: PANTOPRAZOLE 40 MG TAB PO SCH (10:00)
== END 2016-09-29 13:05 | disposition home or self-care (01) | DRG 393 ==
LOC: ER 09:17 → TELE 09:18 → WEST WING 14:48
PROVIDERS: ADMIT Internal Medicine; ATTEND Internal Medicine
PROC: 02HV33Z Insertion of Infusion Device into Superior Vena Cava, Percutaneous Approach (ICD-10-PCS; 2016-09-17)
PROC: BT1B1ZZ Fluoroscopy of Bladder and Urethra using Low Osmolar Contrast (ICD-10-PCS; principal; 2016-09-19)
PROC: 3E0436Z Introduction of Nutritional Substance into Central Vein, Percutaneous Approach (ICD-10-PCS; 2016-09-27)
DX: K91.89 Other postprocedural complications and disorders of digestive system (principal); A41.9 Sepsis, unspecified organism; K63.2 Fistula of intestine; E44.0 Moderate protein-calorie malnutrition; K63.0 Abscess of intestine; I10 Essential (primary) hypertension; B95.2 Enterococcus as the cause of diseases classified elsewhere; E03.9 Hypothyroidism, unspecified; Z88.1 Allergy status to other antibiotic agents; Z80.9 Family history of malignant neoplasm, unspecified; Z84.89 Family history of other specified conditions; Z79.899 Other long term (current) drug therapy; Z68.26 Body mass index [BMI] 26.0-26.9, adult; Z88.8 Allergy status to other drugs, medicaments and biological substances
CPT/HCPCS: 31500; 36415; 36569; 71010; 74176; 74177; 74430; 80048; 80053; 80202; 81001; 82040; 82962; 83605; 83735; 84100; 84478; 85007; 85025; 85027; 85610; 85730; 87040; 87077; 87081; 87086; 87186; 87205; 87493; 96374; 96375; C9113; J0696; J1450; J1815; J1956; J2185; J2250; J3490; J7060; J7131

== ENCOUNTER 2016-10-02 14:51 | Inpatient (IN) | payer OTHER ==
[~2016-10-02] VITALS: Ht 177.8 cm; Wt 74.0 kg
[2016-10-02 15:50] VITALS: BP 137/81
[2016-10-02] MEDS ORDERED: MORPHINE SULF INJ 2 MG/ML SYRINGE 1ML IV PRN (17:15)
[2016-10-02] MEDS ORDERED: ONDANSETRON HCL 4 MG/2 ML VIAL IV PRN (17:15)
[2016-10-02] MEDS ORDERED: cefTRIAXone 1GM/50ML D5W 50 ML IV ONE (17:15)
[2016-10-02 17:49] LABS: Basophils # (auto) 0 uL; Basophils % (auto) 0.1 % (0.0-2.0); Eosinophils # (auto) 0.1 uL; Eosinophils % (auto) 1.5 % (0.0-7.0); Hematocrit 36.6 % (41.0-53.0); Hemoglobin 11.8 g/dL (13.5-17.5); Lymphocytes # (auto) 1.5 uL; Lymphocytes % (auto) 21.3 % (10.0-50.0); Mean Corpuscular Hemoglobin 28.7 pg (28.0-32.0); Mean Corpuscular Hgb Conc. 32.3 g/dL (32.0-36.0); Mean Corpuscular Volume 88.8 fL (80.0-100.0); Mean Platelet Volume 8.5 fL (7.4-10.4); Monocytes # (auto) 0.5 uL; Monocytes % (auto) 6.7 % (0.0-12.0); Neutrophils % (auto) 70.4 % (37.0-80.0); Platelet Count (auto) 283 10^3/uL (140-450); Red Cell Distribution Width 14.7 % (11.6-16.0); White Blood Cell 7.1 10^3/uL (4.4-10.8)
[2016-10-02 17:58] LABS: BUN/Creatinine Ratio 8.1; Bilirubin, Total 0.4 mg/dL (0.2-1.0); Calcium 8.9 mg/dL (8.5-10.1); Potassium 4.3 mmol/L (3.5-5.1)
[2016-10-02 18:04] LABS: Partial Thromboplastin Time 29.5 sec (22.64-33.71); Prothrombin Time 12.3 sec (9.37-12.3)
[2016-10-02 18:07] LABS: INR 1.19 (0.9-1.15)
[2016-10-02] MEDS: SODIUM CHLORIDE 0.9% 1,000 ML IV SCH (21:00)
[2016-10-02] MEDS: metroNIDAZOLE 500MG/100ML 100 ML IV SCH (21:48)
[2016-10-02] MEDS: ALPRAZolam 0.25 MG TAB PO SCH (21:49)
[2016-10-02 22:00] VITALS: BP 115/66
[2016-10-03 05:30] VITALS: BP 123/74
[2016-10-03] MEDS: metroNIDAZOLE 500MG/100ML 100 ML IV SCH ×3 (05:51→21:30)
[2016-10-03] MEDS: LEVOTHYROXINE SODIUM 88 MCG TAB PO SCH (06:02)
[2016-10-03] MEDS: SODIUM CHLORIDE 0.9% 1,000 ML IV SCH ×2 (06:35→19:55)
[2016-10-03] MEDS ORDERED: GASTROGRAFIN 30 ML SOL ONE (07:03)
[2016-10-03 07:27] LABS: Basophils # (auto) 0 uL; Basophils % (auto) 0.4 % (0.0-2.0); Eosinophils # (auto) 0.2 uL; Eosinophils % (auto) 3.3 % (0.0-7.0); Hematocrit 32.6 % (41.0-53.0); Hemoglobin 10.6 g/dL (13.5-17.5); Lymphocytes # (auto) 1.2 uL; Lymphocytes % (auto) 22.6 % (10.0-50.0); Mean Corpuscular Hemoglobin 28.7 pg (28.0-32.0); Mean Corpuscular Hgb Conc. 32.3 g/dL (32.0-36.0); Mean Corpuscular Volume 88.8 fL (80.0-100.0); Mean Platelet Volume 8.8 fL (7.4-10.4); Monocytes # (auto) 0.5 uL; Monocytes % (auto) 9.2 % (0.0-12.0); Neutrophils # (auto) 3.4 uL; Neutrophils % (auto) 64.5 % (37.0-80.0); Platelet Count (auto) 254 10^3/uL (140-450); Red Cell Distribution Width 15.1 % (11.6-16.0); White Blood Cell 5.3 10^3/uL (4.4-10.8)
[2016-10-03 07:51] LABS: Calcium 8.3 mg/dL (8.5-10.1); Potassium 3.6 mmol/L (3.5-5.1)
[2016-10-03 08:30] VITALS: BP 124/73
[2016-10-03] MEDS: cefTRIAXone 1GM/50ML D5W 50 ML IV SCH (09:27)
[2016-10-03] MEDS ORDERED: IOHEXOL 300 MG/ML 100ML BOTTLE IJ ONE (09:34)
[2016-10-03] MEDS: ALPRAZolam 0.25 MG TAB PO SCH ×2 (10:38→21:30)
[2016-10-03] MEDS: CITALOPRAM HYDROBR 20 MG TAB PO SCH (10:38)
[2016-10-03 13:00] VITALS: BP 111/73
[2016-10-03 16:47] VITALS: BP 133/84
[2016-10-03 22:00] VITALS: BP 130/73
[2016-10-04 05:30] VITALS: BP 121/66
[2016-10-04] MEDS: metroNIDAZOLE 500MG/100ML 100 ML IV SCH ×3 (05:34→21:25)
[2016-10-04] MEDS: LEVOTHYROXINE SODIUM 88 MCG TAB PO SCH (06:05)
[2016-10-04 07:37] LABS: Basophils # (auto) 0 uL; Basophils % (auto) 0.3 % (0.0-2.0); Eosinophils # (auto) 0.2 uL; Hematocrit 32.6 % (41.0-53.0); Hemoglobin 10.5 g/dL (13.5-17.5); Lymphocytes # (auto) 1.1 uL; Lymphocytes % (auto) 23.2 % (10.0-50.0); Mean Corpuscular Hgb Conc. 32.3 g/dL (32.0-36.0); Mean Corpuscular Volume 89.9 fL (80.0-100.0); Mean Platelet Volume 8.4 fL (7.4-10.4); Monocytes # (auto) 0.4 uL; Monocytes % (auto) 8.7 % (0.0-12.0); Neutrophils % (auto) 63.8 % (37.0-80.0); Platelet Count (auto) 210 10^3/uL (140-450); Red Cell Distribution Width 14.4 % (11.6-16.0); White Blood Cell 4.8 10^3/uL (4.4-10.8)
[2016-10-04] MEDS: cefTRIAXone 1GM/50ML D5W 50 ML IV SCH (08:44)
[2016-10-04] MEDS: SODIUM CHLORIDE 0.9% 1,000 ML IV SCH ×2 (08:44→22:37)
[2016-10-04 09:00] VITALS: BP 131/71
[2016-10-04] MEDS: CITALOPRAM HYDROBR 20 MG TAB PO SCH (09:47)
[2016-10-04] MEDS: ALPRAZolam 0.25 MG TAB PO SCH ×2 (09:47→21:24)
[2016-10-04 13:00] VITALS: BP 128/75
[2016-10-04 17:00] VITALS: BP 132/79
[2016-10-04 22:00] VITALS: BP 129/74
[2016-10-05 05:00] VITALS: BP 128/69
[2016-10-05] MEDS: metroNIDAZOLE 500MG/100ML 100 ML IV SCH ×3 (06:25→23:14)
[2016-10-05] MEDS: LEVOTHYROXINE SODIUM 88 MCG TAB PO SCH (06:43)
[2016-10-05 08:51] VITALS: BP 147/69
[2016-10-05] MEDS: cefTRIAXone 1GM/50ML D5W 50 ML IV SCH (09:21)
[2016-10-05] MEDS: CITALOPRAM HYDROBR 20 MG TAB PO SCH (10:04)
[2016-10-05] MEDS: ALPRAZolam 0.25 MG TAB PO SCH ×2 (10:04→23:14)
[2016-10-05] MEDS: SODIUM CHLORIDE 0.9% 1,000 ML IV SCH ×2 (11:55→15:59)
[2016-10-05 13:00] VITALS: BP 130/75
[2016-10-05] MEDS ORDERED: fentaNYL CITRATE 100 MCG/2 ML VL ONE (13:16)
[2016-10-05] MEDS ORDERED: MIDAZOLAM HCL 1MG/1ML-2 ML VIAL ONE (13:16)
[2016-10-05] MEDS ORDERED: ONDANSETRON HCL 4 MG/2 ML VIAL ONE (13:16)
[2016-10-05] MEDS ORDERED: PROPOFOL 10 MG/ML 20 ML IV ONE (13:16)
[2016-10-05] MEDS ORDERED: HYDROmorphone HCL 2 MG/ML VL IV PRN (14:45)
[2016-10-05] MEDS ORDERED: PROMETHAZINE HCL 25 MG/ML 1ML IM ONE (14:45)
[2016-10-05] MEDS: HYDROcodone-ACET 5/325MG TAB PO PRN ×2 (16:11→23:14)
[2016-10-05 17:00] VITALS: BP 149/72
[2016-10-05] MEDS ORDERED: MORPHINE SULF INJ 2 MG/ML SYRINGE 1ML IV ONE (17:15)
[2016-10-05 22:00] VITALS: BP 120/73
[2016-10-06 05:00] VITALS: BP 100/61
[2016-10-06] MEDS: LEVOTHYROXINE SODIUM 88 MCG TAB PO SCH (06:28)
[2016-10-06] MEDS: metroNIDAZOLE 500MG/100ML 100 ML IV SCH ×2 (06:28→14:00)
[2016-10-06] MEDS: HYDROcodone-ACET 5/325MG TAB PO PRN (06:40)
[2016-10-06 08:00] VITALS: BP 117/58
[2016-10-06] MEDS: cefTRIAXone 1GM/50ML D5W 50 ML IV SCH (08:50)
[2016-10-06] MEDS: CITALOPRAM HYDROBR 20 MG TAB PO SCH (09:16)
[2016-10-06] MEDS: ALPRAZolam 0.25 MG TAB PO SCH (09:16)
[2016-10-06 13:00] VITALS: BP 113/64
[2016-10-06] MEDS: SODIUM CHLORIDE 0.9% 1,000 ML IV SCH (14:35)
[2016-10-06 16:30] VITALS: BP 113/64
== END 2016-10-06 16:30 | disposition home or self-care (01) | DRG 669 ==
LOC: EAST 14:51 → WEST WING 17:59
PROVIDERS: ADMIT Internal Medicine; ATTEND Internal Medicine
PROC: 0T5B8ZZ Destruction of Bladder, Via Natural or Artificial Opening Endoscopic (ICD-10-PCS; 2016-10-05)
PROC: 0TBB8ZX Excision of Bladder, Via Natural or Artificial Opening Endoscopic, Diagnostic (ICD-10-PCS; principal; 2016-10-05 13:42)
DX: N32.1 Vesicointestinal fistula (principal); K63.2 Fistula of intestine; E11.9 Type 2 diabetes mellitus without complications; N32.9 Bladder disorder, unspecified; F41.9 Anxiety disorder, unspecified; I10 Essential (primary) hypertension; R39.89 Other symptoms and signs involving the genitourinary system; E03.9 Hypothyroidism, unspecified; Z88.1 Allergy status to other antibiotic agents; Z90.49 Acquired absence of other specified parts of digestive tract; Z80.9 Family history of malignant neoplasm, unspecified; Z81.8 Family history of other mental and behavioral disorders; Z79.899 Other long term (current) drug therapy; Z88.8 Allergy status to other drugs, medicaments and biological substances
CPT/HCPCS: 36415; 74177; 80048; 80053; 84443; 85025; 85610; 85730; 87081; 87086; J0696; J2250; J2405; J2704; J3490

== ENCOUNTER → 2016-10-13 | Outpatient (CLI) | payer OTHER ==
[~2016-10-13] MED LIST changes: -LISI-646 PO
[2016-10-13 16:51] LABS: Calcium 8.4 mg/dL (8.5-10.1); Potassium 3.7 mmol/L (3.5-5.1)
[2016-10-13 16:55] LABS: BUN/Creatinine Ratio 5.4; Bilirubin, Total 0.4 mg/dL (0.2-1.0); Total Protein 7.2 g/dL (6.4-8.2)
[2016-10-13 17:04] LABS: Basophils # (auto) 0.1 uL; Basophils % (auto) 0.8 % (0.0-2.0); Eosinophils # (auto) 0.3 uL; Eosinophils % (auto) 3.2 % (0.0-7.0); Hematocrit 40.4 % (41.0-53.0); Hemoglobin 12.9 g/dL (13.5-17.5); Lymphocytes % (auto) 24.4 % (10.0-50.0); Mean Corpuscular Hemoglobin 28.6 pg (28.0-32.0); Mean Corpuscular Hgb Conc. 31.9 g/dL (32.0-36.0); Mean Corpuscular Volume 89.6 fL (80.0-100.0); Mean Platelet Volume 8.4 fL (7.4-10.4); Monocytes # (auto) 0.8 uL; Monocytes % (auto) 9.7 % (0.0-12.0); Neutrophils % (auto) 61.9 % (37.0-80.0); Platelet Count (auto) 236 10^3/uL (140-450); White Blood Cell 8.2 10^3/uL (4.4-10.8)
== END | disposition home or self-care (01) ==
LOC: LAB 16:18
PROVIDERS: ATTEND Internal Medicine
DX: I10 Essential (primary) hypertension (principal); R60.0 Localized edema
CPT/HCPCS: 36415; 80053; 85025; 85049

== ENCOUNTER 2016-10-24 11:27 | Inpatient (IN) | payer OTHER ==
[~2016-10-24] VITALS: Ht 177.8 cm; Wt 89.2 kg
[2016-10-24] MEDS ORDERED: GASTROGRAFIN 30 ML SOL ONE (16:29)
[2016-10-24] MEDS ORDERED: IOHEXOL 300 MG/ML 100ML BOTTLE IJ ONE ×2 (16:29→18:55)
[2016-10-24] MEDS ORDERED: ONDANSETRON HCL 4 MG/2 ML VIAL IV PRN (16:30)
[2016-10-24] MEDS ORDERED: MORPHINE SULF INJ 2 MG/ML SYRINGE 1ML IV PRN (16:30)
[2016-10-24] MEDS ORDERED: SODIUM CHLORIDE 0.9% 1,000 ML IV SCH (16:30)
[2016-10-24] MEDS ORDERED: cefTRIAXone 1GM/50ML D5W 50 ML IV ONE (16:45)
[2016-10-24 17:01] LABS: Basophils # (auto) 0 uL; Basophils % (auto) 0.2 % (0.0-2.0); Eosinophils # (auto) 0.1 uL; Eosinophils % (auto) 0.8 % (0.0-7.0); Hematocrit 38.7 % (41.0-53.0); Hemoglobin 12.1 g/dL (13.5-17.5); Lymphocytes # (auto) 1.1 uL; Lymphocytes % (auto) 17.5 % (10.0-50.0); Mean Corpuscular Hemoglobin 27.9 pg (28.0-32.0); Mean Corpuscular Hgb Conc. 31.3 g/dL (32.0-36.0); Mean Corpuscular Volume 88.9 fL (80.0-100.0); Mean Platelet Volume 8.4 fL (7.4-10.4); Monocytes # (auto) 0.7 uL; Monocytes % (auto) 11.8 % (0.0-12.0); Neutrophils # (auto) 4.4 uL; Neutrophils % (auto) 69.7 % (37.0-80.0); Platelet Count (auto) 239 10^3/uL (140-450); White Blood Cell 6.3 10^3/uL (4.4-10.8)
[2016-10-24 17:27] LABS: Albumin 2.9 g/dL (3.4-5.0); BUN/Creatinine Ratio 14.8; Bilirubin, Total 0.4 mg/dL (0.2-1.0); Calcium 8.6 mg/dL (8.5-10.1); Potassium 3.4 mmol/L (3.5-5.1); Total Protein 6.7 g/dL (6.4-8.2)
[2016-10-24 17:30] LABS: INR 1.08 (0.9-1.15); Partial Thromboplastin Time 29.6 sec (22.64-33.71); Prothrombin Time 11.1 sec (9.37-12.3)
[2016-10-24 18:15] VITALS: BP 152/83
[2016-10-24 18:41] LABS: Urine Bilirubin Negative (Negative); Urine Color Yellow (Yellow); Urine Glucose Normal (Normal); Urine Ketone Negative (Negative); Urine Mucus FEW (None Seen); Urine Nitrite Negative (Negative); Urine RBC 21 /hpf (0 - 3); Urine Urobilinogen Normal (Negative); Urine pH 5.5 (5.0-8.0)
[2016-10-24 18:42] LABS: Urine Blood 2+ /uL (Negative)
[2016-10-24] MEDS: metroNIDAZOLE 500MG/100ML 100 ML IV SCH (21:49)
[2016-10-24 22:00] VITALS: BP 134/75
[2016-10-24] MEDS: HYDROcodone-ACET 5/325MG TAB PO PRN (22:02)
[2016-10-25 05:00] VITALS: BP 125/74
[2016-10-25] MEDS: LEVOTHYROXINE SODIUM 88 MCG TAB PO SCH (05:53)
[2016-10-25] MEDS: metroNIDAZOLE 500MG/100ML 100 ML IV SCH ×3 (05:53→21:13)
[2016-10-25] MEDS: HYDROcodone-ACET 5/325MG TAB PO PRN ×3 (06:00→21:16)
[2016-10-25] MEDS ORDERED: LEVOTHYROXINE SODIUM 25 MCG TAB PO SCH (07:00)
[2016-10-25 08:12] VITALS: BP 128/71
[2016-10-25] MEDS: cefTRIAXone 1GM/50ML D5W 50 ML IV SCH (09:18)
[2016-10-25] MEDS ORDERED: POTASSIUM CHL 20 Meq TABLET PO ONE (11:45)
[2016-10-25] MEDS: SODIUM CHLORIDE 0.9% 1,000 ML IV SCH ×2 (12:25→15:40)
[2016-10-25 12:40] VITALS: BP 125/73
[2016-10-25 16:44] VITALS: BP 126/67
[2016-10-25 21:39] VITALS: BP 134/73
[2016-10-26 05:44] VITALS: BP 133/74
[2016-10-26] MEDS: LEVOTHYROXINE SODIUM 88 MCG TAB PO SCH (06:02)
[2016-10-26] MEDS: metroNIDAZOLE 500MG/100ML 100 ML IV SCH ×3 (06:02→21:52)
[2016-10-26] MEDS: SODIUM CHLORIDE 0.9% 1,000 ML IV SCH (06:02)
[2016-10-26] MEDS: cefTRIAXone 1GM/50ML D5W 50 ML IV SCH (08:36)
[2016-10-26 09:00] VITALS: BP 139/87
[2016-10-26 13:00] VITALS: BP 121/71
[2016-10-26] MEDS: HYDROcodone-ACET 5/325MG TAB PO PRN ×2 (15:51→23:10)
[2016-10-26 17:00] VITALS: BP 128/69
[2016-10-26 22:00] VITALS: BP 132/76
[2016-10-27] VITALS (7 sets, daily range): BP systolic 133–153; BP diastolic 76–80
[2016-10-27] MEDS: SODIUM CHLORIDE 0.9% 1,000 ML IV SCH ×4 (01:00→23:48)
[2016-10-27] MEDS: metroNIDAZOLE 500MG/100ML 100 ML IV SCH ×3 (06:39→22:00)
[2016-10-27] MEDS: LEVOTHYROXINE SODIUM 88 MCG TAB PO SCH (06:39)
[2016-10-27] MEDS: cefTRIAXone 1GM/50ML D5W 50 ML IV SCH (10:12)
[2016-10-27] MEDS: HYDROcodone-ACET 5/325MG TAB PO PRN (22:32)
[2016-10-28 05:00] VITALS: BP 120/76
[2016-10-28] MEDS: metroNIDAZOLE 500MG/100ML 100 ML IV SCH ×2 (06:10→14:00)
[2016-10-28] MEDS: LEVOTHYROXINE SODIUM 88 MCG TAB PO SCH (06:14)
[2016-10-28] MEDS: HYDROcodone-ACET 5/325MG TAB PO PRN (06:47)
[2016-10-28 08:00] VITALS: BP 140/77
[2016-10-28 08:59] VITALS: BP 140/77
[2016-10-28] MEDS: cefTRIAXone 1GM/50ML D5W 50 ML IV SCH (09:06)
[2016-10-28] MEDS: SODIUM CHLORIDE 0.9% 1,000 ML IV SCH (09:48)
[2016-10-28 13:08] VITALS: BP 138/68
[2016-10-28 14:27] VITALS: BP 138/68
== END 2016-10-28 15:46 | disposition home or self-care (01) | DRG 699 ==
LOC: ER 11:32 → OVERFLOW 11:33 → WEST WING 18:16
PROVIDERS: ADMIT Internal Medicine; ATTEND Internal Medicine
DX: N32.1 Vesicointestinal fistula (principal); K57.92 Diverticulitis of intestine, part unspecified, without perforation or abscess without bleeding; N39.0 Urinary tract infection, site not specified; E44.0 Moderate protein-calorie malnutrition; K63.2 Fistula of intestine; I10 Essential (primary) hypertension; E03.9 Hypothyroidism, unspecified; Z88.1 Allergy status to other antibiotic agents; Z68.28 Body mass index [BMI] 28.0-28.9, adult; Z88.8 Allergy status to other drugs, medicaments and biological substances; Z79.899 Other long term (current) drug therapy; Z90.49 Acquired absence of other specified parts of digestive tract
CPT/HCPCS: 36415; 51702; 74177; 80053; 81001; 84443; 85025; 85610; 85730; 87081; 87086; 96365; J0696; J3490

== ENCOUNTER → 2016-12-20 | Outpatient (CLI) | payer OTHER | END | disposition home or self-care (01) | LOC: LAB 06:26 | PROVIDERS: ATTEND Internal Medicine | DX: R35.0 Frequency of micturition (principal); N32.1 Vesicointestinal fistula | CPT/HCPCS: 87086 ==

== ENCOUNTER → 2017-08-06 | Outpatient (CLI) | payer OTHER ==
[2017-08-06 08:33] LABS: Cholesterol 227 mg/dL (< 200); HDL Cholesterol 52 mg/dL (40-59); LDL Cholesterol 150 mg/dL (< 100); Triglycerides 221 mg/dL (< 150)
== END | disposition home or self-care (01) ==
LOC: LAB 06:59
PROVIDERS: ATTEND Internal Medicine
DX: N40.0 Benign prostatic hyperplasia without lower urinary tract symptoms (principal); E78.00 Pure hypercholesterolemia, unspecified
CPT/HCPCS: 36415; 80061; 84153

== ENCOUNTER → 2018-01-24 | Outpatient (CLI) | payer OTHER ==
[2018-01-24 08:03] LABS: Albumin 3.9 g/dL (3.4-5.0); BUN/Creatinine Ratio 16.4; Bilirubin, Total 0.4 mg/dL (0.2-1.0); Calcium 9.2 mg/dL (8.5-10.1); Potassium 4.5 mmol/L (3.5-5.1); Total Protein 7.5 g/dL (6.4-8.2)
== END | disposition home or self-care (01) ==
LOC: LAB 07:18
PROVIDERS: ATTEND Internal Medicine
DX: I10 Essential (primary) hypertension (principal); E78.00 Pure hypercholesterolemia, unspecified; E03.9 Hypothyroidism, unspecified
CPT/HCPCS: 36415; 80053; 80061; 84443

== ENCOUNTER → 2018-07-23 | Outpatient (CLI) | payer OTHER, MEDICARE ==
[2018-07-23 08:00] LABS: Urine WBC None Seen /hpf (0 - 3)
[2018-07-23 08:12] LABS: Basophils # (auto) 0 uL; Basophils % (auto) 0.4 % (0.0-2.0); Eosinophils # (auto) 0.1 uL; Eosinophils % (auto) 1.8 % (0.0-7.0); Hematocrit 47.8 % (41.0-53.0); Lymphocytes # (auto) 1.6 uL; Lymphocytes % (auto) 28.2 % (10.0-50.0); Mean Corpuscular Hgb Conc. 33.4 g/dL (32.0-36.0); Mean Corpuscular Volume 92.7 fL (80.0-100.0); Monocytes # (auto) 0.4 uL; Monocytes % (auto) 6.6 % (0.0-12.0); Neutrophils # (auto) 3.6 uL; Platelet Count (auto) 184 10^3/uL (140-450); Red Blood Cells 5.16 10^6/uL (4.5-5.90); Red Cell Distribution Width 13.2 % (11.8-14.3); White Blood Cell 5.6 10^3/uL (4.4-10.8)
[2018-07-23 08:14] LABS: Urine Bacteria NONE SEEN /hpf (None Seen); Urine Blood Negative /uL (Negative); Urine Mucus FEW (None Seen); Urine Specific Gravity 1.027 (1.001-1.035)
[2018-07-23 08:41] LABS: Albumin 3.7 g/dL (3.4-5.0); Potassium 4.4 mmol/L (3.5-5.1)
[2018-07-23 08:43] LABS: Free T4 (Free Thyroxine) 0.87 ng/dL (0.89-1.76); Prostate Specific Antigen 0.33 ng/mL (0.0-4.0)
[2018-07-23 08:48] LABS: BUN/Creatinine Ratio 21.1; Bilirubin, Total 0.7 mg/dL (0.2-1.0); Calcium 9.2 mg/dL (8.5-10.1); Total Protein 7.4 g/dL (6.4-8.2)
== END | disposition home or self-care (01) ==
LOC: LAB 07:06
PROVIDERS: ATTEND Internal Medicine
DX: E03.9 Hypothyroidism, unspecified (principal); R73.01 Impaired fasting glucose
CPT/HCPCS: 36415; 80053; 80061; 81001; 82043; 83036; 84153; 84439; 84443; 85025; 85652

== ENCOUNTER → 2018-11-08 | Outpatient (CLI) | payer OTHER | END | disposition home or self-care (01) | LOC: LAB 07:01 | PROVIDERS: ATTEND Internal Medicine | DX: N44.8 Other noninflammatory disorders of the testis (principal); E11.9 Type 2 diabetes mellitus without complications; E03.9 Hypothyroidism, unspecified | CPT/HCPCS: 36415; 83036; 84439; 84443 ==

== ENCOUNTER → 2019-04-03 | Outpatient (CLI) | payer OTHER | END | disposition home or self-care (01) | LOC: XYW 07:30 | PROVIDERS: ATTEND Internal Medicine | DX: I07.1 Rheumatic tricuspid insufficiency (principal); I10 Essential (primary) hypertension | CPT/HCPCS: 93306 ==

== ENCOUNTER → 2019-04-10 | Outpatient (CLI) | payer OTHER ==
[~2019-04-10] VITALS: Ht 177.8 cm; Wt 95.3 kg
[~2019-04-10] MED LIST changes: +ADENOSINE 80 MG in GIVE UN-DILUTED 0 ML IV STA
[2019-04-10 09:30] VITALS: BP 158/86
== END | disposition home or self-care (01) ==
LOC: XY 07:35
PROVIDERS: ATTEND Internal Medicine
DX: I10 Essential (primary) hypertension (principal)
CPT/HCPCS: 78452; 93017; A9500; J0153

== ENCOUNTER → 2019-06-06 | Outpatient (CLI) | payer OTHER ==
[~2019-06-06] MED LIST changes: -ADENOSINE 80 MG in GIVE UN-DILUTED 0 ML IV STA
[2019-06-06 07:47] LABS: Urine Bacteria NONE SEEN /hpf (None Seen); Urine Blood Negative /uL (Negative); Urine Specific Gravity 1.021 (1.001-1.035); Urine WBC <1 /hpf (0 - 3)
[2019-06-06 07:50] LABS: Basophils # (auto) 0 uL; Basophils % (auto) 0.5 % (0.0-2.0); Eosinophils # (auto) 0.1 uL; Eosinophils % (auto) 2.2 % (0.0-7.0); Hematocrit 47.8 % (41.0-53.0); Hemoglobin 16.1 g/dL (13.5-17.5); Lymphocytes % (auto) 30.2 % (10.0-50.0); Mean Corpuscular Hemoglobin 31.8 pg (28.0-32.0); Mean Corpuscular Hgb Conc. 33.7 g/dL (32.0-36.0); Mean Corpuscular Volume 94.3 fL (80.0-100.0); Monocytes # (auto) 0.6 uL; Monocytes % (auto) 8.5 % (0.0-12.0); Neutrophils # (auto) 3.9 uL; Neutrophils % (auto) 58.6 % (37.0-80.0); Platelet Count (auto) 161 10^3/uL (140-450); Red Blood Cells 5.07 10^6/uL (4.5-5.90); White Blood Cell 6.7 10^3/uL (4.4-10.8)
[2019-06-06 08:14] LABS: Albumin 3.6 g/dL (3.4-5.0); BUN/Creatinine Ratio 20.6; Calcium 8.7 mg/dL (8.5-10.1); Potassium 4.3 mmol/L (3.5-5.1)
[2019-06-06 08:18] LABS: Bilirubin, Total 0.7 mg/dL (0.2-1.0); Total Protein 7.1 g/dL (6.4-8.2)
[2019-06-06 08:31] LABS: Free T4 (Free Thyroxine) 0.95 ng/dL (0.89-1.76); Prostate Specific Antigen 0.41 ng/mL (0.0-4.0)
== END | disposition home or self-care (01) ==
LOC: LAB 07:05
PROVIDERS: ATTEND Internal Medicine
DX: E11.9 Type 2 diabetes mellitus without complications (principal); I10 Essential (primary) hypertension; R53.83 Other fatigue
CPT/HCPCS: 36415; 80053; 80061; 81001; 82043; 82607; 83036; 84153; 84402; 84403; 84439; 84443; 85025; 85652

== ENCOUNTER → 2020-01-27 | Outpatient (CLI) | payer OTHER ==
[2020-01-27 08:01] LABS: Albumin 3.5 g/dL (3.4-5.0); Calcium 9.1 mg/dL (8.5-10.1); Potassium 4.7 mmol/L (3.5-5.1)
[2020-01-27 08:06] LABS: BUN/Creatinine Ratio 20.5; Bilirubin, Total 0.6 mg/dL (0.2-1.0); Total Protein 7.1 g/dL (6.4-8.2)
== END | disposition home or self-care (01) ==
LOC: LAB 07:16
PROVIDERS: ATTEND Internal Medicine
DX: E11.9 Type 2 diabetes mellitus without complications (principal); I10 Essential (primary) hypertension; E03.9 Hypothyroidism, unspecified
CPT/HCPCS: 36415; 80053; 80061; 84439; 84443

== ENCOUNTER → 2020-08-17 | Outpatient (CLI) | payer OTHER ==
[2020-08-17 07:41] LABS: Urine WBC None Seen /hpf (0 - 3)
[2020-08-17 07:50] LABS: Basophils # (auto) 0 10 ^3/uL (0-0.2); Basophils % (auto) 0.7 % (0.0-2.0); Eosinophils # (auto) 0.1 10 ^3/uL (0-0.8); Eosinophils % (auto) 1.8 % (0.0-7.0); Hemoglobin 16.9 g/dL (13.5-17.5); Lymphocytes # (auto) 1.8 10 ^3/uL (0.4-5.4); Lymphocytes % (auto) 28.3 % (10.0-50.0); Mean Corpuscular Hemoglobin 31.2 pg (28.0-32.0); Mean Corpuscular Hgb Conc. 33.8 g/dL (32.0-36.0); Mean Corpuscular Volume 92.1 fL (80.0-100.0); Monocytes # (auto) 0.5 10 ^3/uL (0-1.3); Monocytes % (auto) 7.3 % (0.0-12.0); Neutrophils % (auto) 61.9 % (37.0-80.0); Nucleated Red Blood Cells % 0.1 %; Platelet Count (auto) 170 10^3/uL (140-450); Red Blood Cells 5.43 10^6/uL (4.5-5.90); Red Cell Distribution Width 12.8 % (11.8-14.3); White Blood Cell 6.5 10^3/uL (4.4-10.8)
[2020-08-17 08:00] LABS: Urine Bacteria NONE SEEN /hpf (None Seen); Urine Blood Negative /uL (Negative); Urine Specific Gravity 1.022 (1.001-1.035)
[2020-08-17 08:42] LABS: Albumin 3.9 g/dL (3.4-5.0); BUN/Creatinine Ratio 19.8; Potassium 4.4 mmol/L (3.5-5.1); Total Protein 7.6 g/dL (6.4-8.2)
[2020-08-17 09:09] LABS: Free T4 (Free Thyroxine) 0.79 ng/dL (0.89-1.76); Prostate Specific Antigen 0.48 ng/mL (0.0-4.0)
== END | disposition home or self-care (01) ==
LOC: LAB 07:23
PROVIDERS: ATTEND Internal Medicine
DX: I10 Essential (primary) hypertension (principal); E11.9 Type 2 diabetes mellitus without complications
CPT/HCPCS: 36415; 80053; 80061; 81001; 82043; 83036; 84153; 84439; 84443; 85025; 85652